=== PATIENT | female | born 1965 | race Caucasian/White ===

== ENCOUNTER 2020-02-01 13:44 | Outpatient (CLI) | payer BC, SELFPAY ==
--- NOTE | ~2020-02-01 | CT_ITS ---
EXAMINATION:CT lung screening DATE: 02/01/2020 14:18 INDICATION: Personal history of tobacco dependence. Current smoker with 30 pack year history. TECHNIQUE: Computed tomography (CT) of the chest was performed without intravenous contrast. Automate d exposure control and iterative reconstruction technique were employed. The dose-length product (DLP ) was 68.69 mGy-cm. COMPARISON: CT abdomen and pelvis 09/21/2007 FINDINGS: There is mild scarring at right lung apex. There is mild emphysema. Calcified bilateral toshia g nodules and calcified left hilar lymph nodes are consistent with old granulomatous disease. There i s minimal atelectasis bilaterally. There are a few nodules in left upper lobe measuring up to 4 mm. N o pleural effusion. The heart size is normal. No pericardial effusion. Calcifications in the spleen a re consistent with old granulomatous disease. There is mild thoracic spondylosis. IMPRESSION: 1. Lung-RADS category 2: Benign appearance or behavior. Continue annual screening with noncontrast lo w-dose chest CT in 12 months. Reviewed, dictated and finalized at location A. IMPRESSION: 1. Lung-RADS category 2: Benign appearance or behavior. Continue annual screeni ng with noncontrast low-dose chest CT in 12 months.
== END 2020-02-01 13:45 | disposition home or self-care (01) ==
PROVIDERS: PCP Family Medicine; Visit Provider Nurse Practitioner Family
DX: Z12.2 Encounter for screening for malignant neoplasm of respiratory organs (principal); Z87.891 Personal history of nicotine dependence
CPT/HCPCS: G0297

== ENCOUNTER 2023-02-21 10:00 | Outpatient (CLI) | payer BC, SELFPAY ==
--- NOTE | ~2023-02-21 | CT_ITS ---
EXAMINATION: CT lung screening DATE: 02/21/2023 10:24 INDICATION: Personal history of nicotine dependence TECHNIQUE: Computed tomography (CT) of the chest was performed without intravenous contrast. The dose -length product was 74.79 mGy-cm. Automated exposure control and iterative reconstruction technique w ere employed. COMPARISON: CT dated 02/01/2020 FINDINGS: No thoracic lymphadenopathy. There are calcified mediastinal and left hilar lymph nodes, co nsistent with chronic granulomatous disease. No significant pleural or pericardial effusion. There ar e calcified granulomas in the spleen and left lower lobe. There is emphysema. There are a few scatter ed pulmonary nodules bilaterally.. Largest measures 6 mm in the superior segment left lower lobe. Mil d thoracic spondylosis. No focal lytic or blastic lesions. No focal airspace consolidation. No endobr onchial lesions. No pneumothorax. IMPRESSION: 1. Lung-RADS category 3: Probably benign. Further evaluation is recommended with noncontrast low-dose chest CT in 6 months. Reviewed, dictated and finalized at location B. IMPRESSION: 1. Lung-RADS category 3: Probably benign. Further evaluation is recommended wit h noncontrast low-dose chest CT in 6 months.
== END 2023-02-21 10:01 | disposition home or self-care (01) ==
LOC: ANHIMG 10:01
PROVIDERS: PCP Family Medicine; Visit Provider Nurse Practitioner Family
DX: Z12.2 Encounter for screening for malignant neoplasm of respiratory organs (principal); Z87.891 Personal history of nicotine dependence; R91.8 Other nonspecific abnormal finding of lung field
CPT/HCPCS: 71271